=== PATIENT | female | born 1955 | race Asian ===

== ENCOUNTER 2017-12-03 15:40 | Inpatient (IN) | payer OTHER ==
[~2017-12-03] VITALS: Ht 170.2 cm; Wt 57.2 kg
[~2017-12-03 15:40] MED LIST: ACETAMINOPHEN/H1 TA6 PO; ANTIVERT/2525 MG PO
[2017-12-03 15:50] VITALS: Ht 170.2 cm; Wt 57.2 kg
[2017-12-03 18:12] LABS: BASOPHIL % 0.7 % (0-2); PLATELET COUNT 249 x10^3mcL (130-400)
[2017-12-03 18:31] LABS: CALCIUM 9.1 mg/dL (8.5-10.1); CARBON DIOXIDE 27.2 mmol/L (21-32); CHLORIDE SERUM 100 mmol/L (98-107); CREATININE SERUM 0.8 mg/dL (0.6-1.0); GFR1 > 60 mL/min; GLUCOSE SERUM 99 mg/dL (74-106); POTASSIUM SERUM 3.4 mmol/L (3.5-5.1); SODIUM SERUM 138 mmol/L (136-145)
[2017-12-03 18:36] LABS: ALKALINE PHOSPHATASE 104 U/L (46-116); ALT/SGPT 98 U/L (14-59); AMYLASE 93 U/L (25-115); AST/SGOT 48 U/L (15-37); BILIRUBIN TOTAL 0.59 mg/dL (0.20-1.00); LIPASE 347 IU/L (73-393)
[2017-12-03 18:37] LABS: TOTAL PROTEIN, SERUM 8.4 g/dL (6.4-8.2)
[2017-12-03 21:30] LABS: MAGNESIUM 2.8 mg/dL (1.8-2.4); PHOSPHOROUS 4.4 mg/dL (2.5-4.9)
[2017-12-03 21:33] LABS: CHOLESTEROL/HDL RATIO 3.1
[2017-12-03 21:36] LABS: T3 TOTAL 0.82 ng/mL
[2017-12-03 21:38] LABS: FREE T4 1.02 ng/dL (0.76-1.46); FREE THYROXINE INDEX 2.6 ug/dL (1.4-4.5); T4(THYROXINE) 8.1 ug/dL (4.7-13.3)
[2017-12-03 21:41] VITALS: BP 121/65
[2017-12-04 06:22] VITALS: BP 108/63
[2017-12-04 07:36] LABS: CALCIUM 8.2 mg/dL (8.5-10.1); CARBON DIOXIDE 26.2 mmol/L (21-32); CHLORIDE SERUM 109 mmol/L (98-107); CREATININE SERUM 0.8 mg/dL (0.6-1.0); GFR1 > 60 mL/min; GLUCOSE SERUM 106 mg/dL (74-106); MAGNESIUM 2.6 mg/dL (1.8-2.4); PHOSPHOROUS 3.1 mg/dL (2.5-4.9); POTASSIUM SERUM 3.5 mmol/L (3.5-5.1); SODIUM SERUM 143 mmol/L (136-145)
[2017-12-04 07:37] LABS: BASOPHIL % 0.4 % (0-2); PLATELET COUNT 227 x10^3mcL (130-400); RED CELL DISTRIBUTION WIDTH 12.9 % (11.5-14.5)
[2017-12-04 08:45] VITALS: BP 142/92
[2017-12-04 08:47] VITALS: BP 121/75
[2017-12-04 13:34] VITALS: BP 131/76
[2017-12-04 14:58] LABS: microscopic required? YES; urine erythrocyte 1+ (NEGATIVE)
[2017-12-04 15:10] LABS: AMPHETAMINE QUAL UR NONE DETECTED (NEG <=1000)
[2017-12-04 17:20] VITALS: BP 153/69
[2017-12-04 20:40] VITALS: BP 125/66
[2017-12-05 04:59] VITALS: BP 119/62
[2017-12-05 06:56] LABS: BASOPHIL % 0.4 % (0-2); PLATELET COUNT 217 x10^3mcL (130-400); RED CELL DISTRIBUTION WIDTH 12.9 % (11.5-14.5)
[2017-12-05 07:17] LABS: ALBUMIN 3.4 g/dL (3.4-5.0); ALKALINE PHOSPHATASE 78 U/L (46-116); ALT/SGPT 74 U/L (14-59); AST/SGOT 31 U/L (15-37); BILIRUBIN TOTAL 0.5 mg/dL (0.20-1.00); CALCIUM 8.2 mg/dL (8.5-10.1); CARBON DIOXIDE 23.6 mmol/L (21-32); CHLORIDE SERUM 109 mmol/L (98-107); CREATININE SERUM 0.6 mg/dL (0.6-1.0); GFR1 > 60 mL/min; GLUCOSE SERUM 109 mg/dL (74-106); MAGNESIUM 2.3 mg/dL (1.8-2.4); PHOSPHOROUS 2.3 mg/dL (2.5-4.9); POTASSIUM SERUM 3.6 mmol/L (3.5-5.1); SODIUM SERUM 141 mmol/L (136-145); TOTAL PROTEIN, SERUM 7.2 g/dL (6.4-8.2)
[2017-12-05 09:45] VITALS: BP 114/66
[2017-12-05 13:18] VITALS: BP 126/70
[2017-12-05] MEDS ORDERED: LIPI20 PO (16:42)
[2017-12-05] MEDS ORDERED: LEVOFLOXACIN500 M1 PO (16:43)
[2017-12-05] MEDS ORDERED: LAC PO (16:43)
[2017-12-05 17:01] VITALS: BP 126/70
== END 2017-12-05 17:20 | disposition home or self-care (01) | DRG 73 ==
LOC: ED 15:40 → DU 21:06 → EDBEDREQ 21:29 → DU 21:30
PROVIDERS: Emergency Medicine; Family Medicine; Internal Medicine Gastroenterology
PROC: 0DB68ZX Excision of Stomach, Via Natural or Artificial Opening Endoscopic, Diagnostic (ICD-10-PCS; principal; 2017-12-05 08:00)
PROC: 0DJD8ZZ Inspection of Lower Intestinal Tract, Via Natural or Artificial Opening Endoscopic (ICD-10-PCS; 2017-12-05 08:00)
DX: G90.9 Disorder of the autonomic nervous system, unspecified (principal); N17.0 Acute kidney failure with tubular necrosis; N39.0 Urinary tract infection, site not specified; E86.0 Dehydration; R13.12 Dysphagia, oropharyngeal phase; G44.201 Tension-type headache, unspecified, intractable; K29.60 Other gastritis without bleeding; K80.50 Calculus of bile duct without cholangitis or cholecystitis without obstruction; M54.9 Dorsalgia, unspecified; E87.6 Hypokalemia; E83.41 Hypermagnesemia; E83.39 Other disorders of phosphorus metabolism; E78.5 Hyperlipidemia, unspecified; Z85.118 Personal history of other malignant neoplasm of bronchus and lung; Z90.2 Acquired absence of lung [part of]; Z80.1 Family history of malignant neoplasm of trachea, bronchus and lung; Z68.21 Body mass index [BMI] 21.0-21.9, adult
CPT/HCPCS: 43235; 45378; 83880; 84439; J1200; J1610; J1956; J2250; J2270; J2310; J2405; J3010; J3490; J7030; Q0092